=== PATIENT | female | born 1975 | race Caucasian/White ===

== ENCOUNTER 2019-12-18 09:17 | Outpatient (NON) | payer OTHER, SELFPAY ==
[2019-12-18 22:07] LABS: SARS-CoV-2 RNA PCR Negative
== END 2019-12-18 09:18 ==
PROVIDERS: PCP Family Medicine; Visit Provider Nurse Practitioner Family
DX: Z20.828 Contact with and (suspected) exposure to other viral communicable diseases (principal); R05 Cough
CPT/HCPCS: 87635; C9803; U0003

== ENCOUNTER 2020-01-06 09:32 | Outpatient (NON) | payer OTHER, SELFPAY ==
[2020-01-06 23:47] LABS: SARS-CoV-2 RNA PCR Negative
== END 2020-01-06 09:33 ==
LOC: ANHCOVIDDT 09:33
PROVIDERS: PCP Family Medicine; Visit Provider Family Medicine
DX: R68.89 Other general symptoms and signs (principal); Z20.828 Contact with and (suspected) exposure to other viral communicable diseases
CPT/HCPCS: 87635; C9803; U0003

== ENCOUNTER → 2021-02-20 01:12 | Outpatient (CLI) | payer OTHER, SELFPAY ==
[2021-02-20 21:22] LABS: SARS-CoV-2 RNA PCR Positive
== END ==
PROVIDERS: Visit Provider Physician Assistant Medical
DX: U07.1 COVID-19 (principal)
CPT/HCPCS: C9803; U0003; U0005

== ENCOUNTER → 2022-02-26 12:29 | Outpatient (CLI) | payer OTHER, SELFPAY ==
--- NOTE | ~2022-02-26 | MM_ITS ---
EXAMINATION: MM screening joss BI w frantz HISTORY: . TECHNIQUE: Craniocaudal and mediolateral oblique 3-D tomosynthesis images were obtained and synthetic 2-D images were generated. CAD analysis was submitted and interpreted. COMPARISON: 02/13/2019, 10/10/2017 bilateral screening mammogram examinations BREAST PARENCHYMAL COMPOSITION: The breasts are heterogeneously dense, which may obscure small masses . FINDINGS: There is no evidence of suspicious mass, calcification, or architectural distortion to sugg est malignancy in either breast. There has been no suspicious interval change. IMPRESSION: 1. No mammographic evidence of malignancy. 2. Recommend routine screening mammography in one year. BI-RADS Category 1: Negative Reviewed, dictated and finalized at location A. [employer]
== END ==
PROVIDERS: PCP Family Medicine; Visit Provider Obstetrics & Gynecology
DX: Z12.31 Encounter for screening mammogram for malignant neoplasm of breast (principal)
CPT/HCPCS: 77063; 77067

== ENCOUNTER 2023-01-26 12:02 | Emergency (ER) | payer OTHER, SELFPAY ==
--- NOTE | 2023-01-26 12:06 | ED.EAR ---
HPI - Ear Problem General Chief complaint: Ear Stated complaint: Left Ear Irritation Time Seen by Provider: 01/26/23 12:04 Source: patient Mode of arrival: ambulatory Limitations: no limitations History of Present Illness HPI Narrative: Mary Ann is a 47-year-old female patient presenting to the clinic today with complaints of left ear pain x2 weeks. She reports the pain is off and on. States that her ear is painful and feels clogged. Related Data Allergies Allergy/AdvReac Type Severity Reaction Status Date / Time propoxyphene Allergy Severe Unknown Verified 01/26/23 12:09 dextromethorphan AdvReac Intermediate seratonin Verified 01/26/23 12:09 [From Mucinex DM] diphenhydramine AdvReac Intermediate Shakiness Verified 01/26/23 12:09 [From Benadryl] guaifenesin [From Mucinex DM] AdvReac Intermediate seratonin Verified 01/26/23 12:09 Review of Systems Review of Systems: Pertinent positives per HPI. Patient denies any fever, chills, rash, headache, visual changes, dizziness, cough, shortness of breath, chest pain, palpitations, nausea, vomiting, diarrhea, constipation, abdominal pain, or any urinary issues. [facility] Past Medical History Medical History Abnormal Pap smear of cervix 1997; 1998; 07/1999 ascus; 11/03/1999 ascus; 04/26/00 ascus BMI 20.0-20.9, adult BMI 21.0-21.9, adult Screening mammogram, encounter for Surgical History Surgical History H/O LEEP 05/14/00 cervical dysplasia, HGSIL History of colposcopy with cervical biopsy 07/26/98 HPV changes, chronic cervicitis 12/15/99 benign History of dilation and curettage 09/25/07 dx lscope/chromopertubation/hscope d&c--infertility History of laparoscopy 09/25/07 dx lscope/chromopertubation/hscope d&c--infertility History of robot-assisted laparoscopic hysterectomy (06/16/15) RA TLH--symptomatic uterine fibroids, leiomyoma Family History Family History Father Acute myocardial infarction Cerebrovascular accident Alcohol abuse Mother Rheumatoid arthritis Anxiety COVID-19 Sibling Anxiety COVID-19 Grandparent Hypertension paternal grandmother Ovarian cancer paternal grandmother Breast cancer paternal grandmother Other Family history of malignant neoplasm Social History Social History Smoking status: Never smoker Second hand tobacco smoke exposure: No Alcohol intake: current Drinks per week: 5 Substance use: never Substance use type: does not use Lack of Transportation: No Lack of Food: Never True Current Housing: I Have Housing Concerned About Future Housing: No Difficulty Paying Gas/Electric Bills: No Difficulty Paying for Meds: No Currently Unemployed: No Education: Bachelor's Degree Difficulty w/ Childcare or Family Care: No Living arrangements: with family Additional living arrangements comments: Occupation/Education: occupation 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 Gender identity (if verbalized by the patient): Female Sexual Orientation (if Verbalized by the Patient): Straight or Heterosexual Comments At the time of my signature, I reviewed and agree with the nursing past medical, surgical, social, and family history. There is no relevant family history pertinent to the patient complaint. Exam Narrative: General: Well-developed, well nourished, in no apparent distress Head: Normocephalic, atraumatic Eyes: Pupils equally round and reactive to light bilaterally, EOM intact, sclera and conjunctive clear, no discharge, lids normal Ears: Left TM intact, clear, mild bulging, right ear canal impacted with hard cerumen, no drainage, grossly hearing normal. Tenderness to palpation over
[2023-01-26 12:10] VITALS: BP 104/64; PULSE 76; RESP 16; TEMP 36.4; O2SAT 100
== END 2023-01-26 12:24 | disposition home or self-care (01) ==
PROVIDERS: Emergency Provider Nurse Practitioner Family; PCP Family Medicine
DX: H69.92 Unspecified Eustachian tube disorder, left ear (principal); H61.21 Impacted cerumen, right ear
CPT/HCPCS: 99213; G0463

== ENCOUNTER 2023-05-27 10:47 | Outpatient (CLI) | payer OTHER, SELFPAY ==
--- NOTE | ~2023-05-27 | US_ITS ---
Pelvic ultrasound. Clinical History: Pelvic pain Technique: Realtime transabdominal scanning of the pelvis was performed. Color flow Doppler and Doppl er spectral analysis were performed. Findings: The uterus is absent, compatible with prior hysterectomy. The right ovary measures 3.2 x 3.9 x 2.5 cm. No significant right ovarian or adnexal mass is seen. The left ovary measures 2.6 x 2.1 x 1.9 cm. No significant left ovarian or adnexal mass is seen. Small bilateral ovarian cysts are compatible with follicular cysts. There is no evidence of free fluid in the cul de sac. Impression: No significant abnormality seen, aside from prior hysterectomy. Reviewed, dictated and finalized at location . Impression: No significant abnormality seen, aside from prior hysterectomy.
== END 2023-05-27 10:48 ==
LOC: GOSHIMG 10:48
PROVIDERS: PCP Family Medicine; Visit Provider Obstetrics & Gynecology
DX: R10.2 Pelvic and perineal pain (principal)
CPT/HCPCS: 76830; 76856

== ENCOUNTER 2023-06-10 10:25 | Outpatient (CLI) | payer OTHER, SELFPAY ==
--- NOTE | ~2023-06-10 | XR_ITS ---
XR hip RT min 2V 06/10/2023 10:48 Indication: Right hip pain Procedure: 2 views right hip Comparison: No prior studies for comparison. Findings: There is no fracture, subluxation or dislocation. There is anatomic alignment. No significa nt joint space narrowing. No soft tissue abnormalities. No foreign bodies. Impression: 1: No significant bone or joint abnormality. Reviewed, dictated and finalized at location B. Impression: 1: No significant bone or joint abnormality.
--- NOTE | ~2023-06-10 | XR_ITS ---
EXAMINATION: XR hip LT min 2V DATE: 06/10/2023 10:48 INDICATION: Left hip pain. TECHNIQUE: 2 views of left hip were obtained. COMPARISON: None. FINDINGS: Bone alignment is normal. No fracture. There is mild left hip osteoarthritis. IMPRESSION: 1. Mild left hip osteoarthritis. Reviewed, dictated and finalized at location E.
--- NOTE | ~2023-06-10 | XR_ITS ---
EXAMINATION: XR lumbar spine 2-3V DATE: 06/10/2023 10:48 INDICATION: Low back pain, unspecified. TECHNIQUE: 3 views of lumbar spine were obtained. COMPARISON: None. FINDINGS: There is 5 degrees levocurvature of lumbar spine. Vertebral body heights are normal. There is mildly decreased disc height at L4-L5. There is multilevel mild to moderate facet joint osteoarthr itis. IMPRESSION: 1. Mild lumbar spondylosis Reviewed, dictated and finalized at location E. IMPRESSION: 1. Mild lumbar spondylosis
== END 2023-06-10 10:26 ==
LOC: MICIMG 10:27
PROVIDERS: PCP Nurse Practitioner Family; Visit Provider Nurse Practitioner Family
DX: M25.551 Pain in right hip (principal); M47.896 Other spondylosis, lumbar region; M16.12 Unilateral primary osteoarthritis, left hip
CPT/HCPCS: 72100; 73502

== ENCOUNTER 2023-07-03 15:01 | Outpatient (CLI) | payer OTHER, SELFPAY ==
--- NOTE | ~2023-07-03 | MM_ITS ---
EXAMINATION: MM screening joss BI w frantz HISTORY: Screening mammogram TECHNIQUE: Craniocaudal and mediolateral oblique 3-D tomosynthesis images were obtained and synthetic 2-D images were generated. CAD analysis was submitted and interpreted. COMPARISON: 02/26/2022, 02/13/2019 and lateral screening mammogram examinations BREAST PARENCHYMAL COMPOSITION: The breasts are heterogeneously dense, which may obscure small masses . FINDINGS: There is no evidence of suspicious mass, calcification, or architectural distortion to sugg est malignancy in either breast. There has been no suspicious interval change. IMPRESSION: 1. No mammographic evidence of malignancy. 2. Recommend routine screening mammography in one year. BI-RADS Category 1: Negative Reviewed, dictated and finalized at location B.
== END 2023-07-03 15:02 ==
PROVIDERS: PCP Obstetrics & Gynecology; Visit Provider Obstetrics & Gynecology
DX: Z12.31 Encounter for screening mammogram for malignant neoplasm of breast (principal)
CPT/HCPCS: 77063; 77067